=== PATIENT | female | born 1975 | race Caucasian/White ===

== ENCOUNTER → 2016-07-19 | Outpatient (REF) | payer OTHER ==
[~2016-07-19] MED LIST: ACCUKIT10 XX; ACURKIT XX; ADVO31MI2 XX; ALCOPAD25 XX; COLA100C PO; IBUP600T26 PO; LANTINJ4 SC; METF500T PO; ONDA4TAB6 PO; OXYC1TAB23 PO
[2016-07-19 11:48] LABS: ALBUMIN 3.4 GM/DL (3.2-5.2); ALBUMIN/GLOBULIN RATIO 1.13 (1.00-1.93); ALKALINE PHOSPHATASE 44 U/L (45-117); ALT/SGPT 20 U/L (12-78); ANION GAP 8 MEQ/L (8-16); AST/SGOT 16 U/L (15-37); BILIRUBIN,TOTAL 0.3 MG/DL (0.2-1.0); BLOOD UREA NITROGEN 11 MG/DL (7-18); CALCIUM LEVEL 8.5 MG/DL (8.5-10.1); CARBON DIOXIDE LEVEL 28 MEQ/L (21-32); CHLORIDE LEVEL 106 MEQ/L (98-107); CHOLESTEROL LEVEL 149 MG/DL (<200); CREATININE FOR GFR 0.72 MG/DL (0.55-1.02); GLOMERULAR FILTRATION RATE > 60.0 (>58); GLUCOSE, FASTING 130 MG/DL (70-105); SODIUM LEVEL 142 MEQ/L (136-145); TOTAL PROTEIN 6.4 GM/DL (6.4-8.2); TRIGLYCERIDES LEVEL 261 MG/DL (<150)
== END ==
LOC: M SFHCCLAY 07:29
PROVIDERS: ATTEND Family Medicine
DX: E11.65 Type 2 diabetes mellitus with hyperglycemia (principal)

== ENCOUNTER → 2024-03-30 | Outpatient (CLI) | payer OTHER ==
[~2024-03-30] MED LIST changes: -COLA100C PO; +COLA100C5 PO; +IBUP-1022 PO; -IBUP600T26 PO; -METF500T PO; +METF500T13 PO; +ONDA-282 PO; -ONDA4TAB6 PO
== END ==
LOC: M WHC 14:40
PROVIDERS: ATTEND Nurse Practitioner Family
DX: D44.0 Neoplasm of uncertain behavior of thyroid gland (principal)